=== PATIENT | female | born 1965 | race Two or more races ===

== ENCOUNTER 2016-05-28 17:59 | Emergency (ER) | payer OTHER ==
[2016-05-28] MEDS ORDERED: CYCLOBENZAPRINE HCL 10 MG TABLET ONE (18:42)
[2016-05-28] MEDS ORDERED: ACETAMINOPHEN 500 MG TABLET ONE (18:42)
[2016-05-28] MEDS ORDERED: IBUPROFEN 800 MG TABLET ONE (18:42)
== END 2016-05-28 19:21 | disposition home or self-care (01) ==
LOC: ED 17:59
DX: M54.5 Low back pain (principal); M54.2 Cervicalgia; R73.09 Other abnormal glucose; V43.62XA Car passenger injured in collision with other type car in traffic accident, initial encounter; Y92.410 Unspecified street and highway as the place of occurrence of the external cause
CPT/HCPCS: 99283 ×2; 82962; A9270 ×2